=== PATIENT | male | born 1955 | race Hispanic/Latino ===

== ENCOUNTER 2017-12-28 07:15 | Day surgery (SDC) | payer BC ==
[2017-12-22 08:31] VITALS: BMI 27.2
--- NOTE | 2017-12-26 03:53 | HP ---
REASON FOR ADMISSION: Left heart cath, possible angioplasty, abnormal stress test. BRIEF CLINICAL HISTORY: This is a 62-year-old male with a past medical history significant for hypothyroidism, hypertension, hyperlipidemia, complaining of dyspnea on exertion, chest pain, jaw pain, neck pain on exertion especially more so when he woke up in the morning. Patient underwent a stress test and echo. A stress test showed apical ischemia with [address] depression in II, III, aVF. Patient is scheduled for elective cardiac cath, possible angioplasty. PAST HISTORY: Significant for hypertension, hyperlipidemia, hypothyroidism. SOCIAL HISTORY: Denies any smoking. Denies any history of alcohol abuse. CURRENT MEDICATIONS: Patient is taking simvastatin 20 mg daily, metoprolol succinate 100 mg daily, lisinopril 10 mg daily, levothyroxine 25 mcg daily, aspirin 81 mg daily. ALLERGIES: NO KNOWN DRUG ALLERGY. RECENT CARDIAC WORKUP: As follows: Patient had echocardiography on 12/05/2017, that showed ejection fraction 55%, mild MR, trace tricuspid regurgitation, RV systolic pressure 24. Patient underwent a stress test, stress thallium that walked on the treadmill for 9 minutes 13 seconds and the peak of exercise shows [address] depression in II, III, aVF, V5, V6. No jaw pain at the time, but nuclear scan suspicious for ischemia apical, ejection fraction 62%. REVIEW OF SYSTEMS: As per HPI. PHYSICAL EXAMINATION: GENERAL: As follows: Height of the patient 5 feet 6 inches, weight of the patient 169 pounds, body mass index 28 kg/sq m. VITAL SIGNS: Temperature afebrile, heart rate 80, blood pressure 130/80. HEENT: PERRLA. Extraocular muscles intact. NECK: Supple. No carotid bruit or thyromegaly. CHEST: Clear to auscultation. HEART: S1 and S2 regular. ABDOMEN: Soft. EXTREMITIES: Clubbing and cyanosis, negative. LABORATORY DATA: Blood workup pending. IMPRESSION: A 62-year-old male with hypothyroidism, hypertension, and hyperlipidemia, complaining of jaw pain when waking up in the morning, abnormal stress test, apical ischemia, ejection fraction preserved, mild mitral regurgitation, [id number]-mj-[id number] tricuspid regurgitation. RECOMMENDATION: Cardiac cath. Further recommendations after the cardiac catheterization. We will follow the blood workup when it is available and if okay, we will proceed for cardiac catheterization. Discussed with the patient. Patient agreed. We will proceed for cardiac cath. Further recommendation after cardiac catheterization. Thank you, Dr. Johnson, for providing us the opportunity in taking care of the patient, Thierry Coleman. Ricardo Brothers MD
[2017-12-28 08:00] LABS: BASO # 0.07 K/mm3 (0.0-2.0); BASO % 0.9 % (0.0-3.0); EOS # 0.2 (0.0-0.7); EOS % 2.1 % (1.5-5.0); GRAN # 4.9 (1.4-6.5); GRAN % 61.5 % (50.0-68.0); HEMOGLOBIN 15.6 g/dL (14.0-18.0); LYMPH # 2.3 (1.2-3.4); LYMPH % 28.9 % (22.0-35.0); MEAN CELL VOLUME 89.7 fl (80.0-105.0); MEAN CORPUSCULAR HEMOGLOBIN 30.2 pg (25.0-35.0); MEAN CORPUSCULAR HGB CONC 33.6 g/dl (31.0-37.0); MEAN PLATELET VOLUME 10.8 fl (7.0-11.0); MONO # 0.5 (0.1-0.6); MONO % 6.6 % (1.0-6.0); RBC 5.17 10^6/uL (3.5-6.1); RED CELL DISTRIBUTION WIDTH 13.1 % (11.5-14.5)
[2017-12-28 08:06] LABS: INR 1.03; PARTIAL THROMBOPLASTIN TIME 29.1 Seconds (25.1-36.5); PROTHROMBIN TIME 11.8 SECONDS (9.4-12.5)
[2017-12-28 08:17] LABS: BLOOD UREA NITROGEN 18 mg/dL (7-21); CALCIUM 9.5 mg/dL (8.4-10.5); GFR NON-AFRICAN AMERICAN > 60; HDL CHOLESTEROL 37 mg/dL (29-60)
[2017-12-28 08:28] LABS: LDL CHOLESTEROL 89 mg/dL (0-129)
[2017-12-28] MEDS ORDERED: Verapamil 2 ML ONE (09:42)
[2017-12-28] MEDS ORDERED: Lidocaine 2% PF (10 ml) Amp ONE (09:42)
[2017-12-28] MEDS ORDERED: Nitroglycerin 50mg in D5W 50 MG/250 ML BOTTLE IV ONE (09:42)
--- NOTE | 2017-12-28 09:51 | CARD ---
APPROVED REPORT Date of service: 12/28/2017 EKG Measurement Heart [id number] <Conclusion> Normal sinus rhythm Normal ECG
[2017-12-28] MEDS ORDERED: Midazolam 2 MG/2 ML VIAL ONE (10:36)
[2017-12-28] MEDS ORDERED: Iohexol 350mgl/ml 50 ML ONE (10:55)
[2017-12-28] MEDS ORDERED: Iohexol 350 MG/100 ML VIAL ONE (10:55)
[2017-12-28] MEDS ORDERED: Eptifibatide 20 mg/10mL Inj IVP ONE (10:55)
[2017-12-28] MEDS ORDERED: Phenylephrine 10 mg/ml Inj ONE (11:03)
[2017-12-28] MEDS ORDERED: Sodium Chloride 0.9% 1,000 ML IV SCH (11:45)
--- NOTE | 2017-12-28 12:12 | CPOSTOP ---
DATE: 12/28/2017 CARDIOVASCULAR LAB POST PROCEDURE NOTE DICTATING PHYSICIAN: Ricardo Brothers MD BED MACHINE OPERATOR: Willy prepress technician. TYPE OF ANESTHESIA: Moderate conscious sedation. Total 2 mg of Versed, 100 of fentanyl. PRE-PROCEDURE DIAGNOSES: Unstable angina, abnormal stress test, apical defect, suspicious ischemia. PROCEDURE PERFORMED: 1. Left heart catheterization. 2. Stenting of mid right coronary artery with drug-eluting stent. FINDINGS: Mid RCA 80-90% stenosis, moderate disease in the LAD, preserved LV function. FINAL DIAGNOSIS: Single-vessel critical disease. POST PROCEDURE CONDITION: Post procedure, the patient's condition is stable. VASCULAR ACCESS SITE: Left radial. CLOSURE DEVICE: TR Band. TOTAL RADIATION DOSE: 8071.3 milligray unit. TOTAL FLUORO TIME: 6.9 minutes. Ricardo Brothers MD
--- NOTE | 2017-12-28 12:53 | CARD ---
APPROVED REPORT Date of service: 12/28/2017 EKG Measurement Heart [id number] <Conclusion> Sinus bradycardia Minimal voltage criteria for LVH, may be normal variant
[2017-12-28 15:42] LABS: BASO # 0.03 K/mm3 (0.0-2.0); BASO % 0.4 % (0.0-3.0); EOS # 0.2 (0.0-0.7); EOS % 1.8 % (1.5-5.0); GRAN # 5.11 (1.4-6.5); HEMOGLOBIN 14.8 g/dL (14.0-18.0); LYMPH # 2.2 (1.2-3.4); LYMPH % 26.8 % (22.0-35.0); MEAN CELL VOLUME 89.4 fl (80.0-105.0); MEAN CORPUSCULAR HEMOGLOBIN 30.3 pg (25.0-35.0); MEAN CORPUSCULAR HGB CONC 33.9 g/dl (31.0-37.0); MEAN PLATELET VOLUME 10.6 fl (7.0-11.0); MONO # 0.7 (0.1-0.6); RBC 4.89 10^6/uL (3.5-6.1); RED CELL DISTRIBUTION WIDTH 13.2 % (11.5-14.5); WHITE BLOOD COUNT 8.1 10^3/ul (4.5-11.0)
[2017-12-28 15:55] LABS: BLOOD UREA NITROGEN 15 mg/dL (7-21); CALCIUM 9.1 mg/dL (8.4-10.5); GFR NON-AFRICAN AMERICAN > 60
[2017-12-28] MEDS ORDERED: Bacitracin 500 Units/gm Oint Foilpak UD ONE (15:56)
[2017-12-28 17:48] VITALS: BP 150/73; PULSE 58; RESP 19; TEMP 97.7
[2017-12-28 17:57] VITALS: O2SAT 97
--- NOTE | 2017-12-28 18:28 | CARD ---
APPROVED REPORT Date of service: 12/28/2017 Procedure(s) performed: Left Heart Catheterization PTCA with Stenting of Mid RCA with Rioc HISTORY The patient is a 62 year-old male with a history of : most recent EF: 62%. (EF Method: RADIONUCLIDE), hypertension , dyslipidemia , Chest pain, Jaw pain and neck pain on exertion and abnormal stress test Apical ischemia. INDICATION The indication(s) include : positive stress test. CASE TECHNIQUE The patient was brought electively to the Cardiac Catheterization Laboratory in a fasting state and was prepped and draped in a sterile manner. The left wrist was infiltrated with 2% Lidocaine subcutaneous anesthesia. A 6FR [employer] KIT sheath was inserted into the left radial artery without difficulty. Coronary angiography was performed using coronary diagnostic catheters. The left coronary system was accessed and visualized with a Diagnostic ,5F JR 4 CATH DXT 100 CM catheter. The right coronary system was accessed and visualized with a Diagnostic ,6 Fr AL 1 catheter. The left ventricle was accessed and visualized with a 5 Fr Pigtail 145 (Angled) catheter. Left ventricular/Aortic Valve gradient assessed on pullback. Left ventriculogram was performed in PAULSON projection. The patient tolerated the procedure well and there were no complications associated with the procedure. Vessel Analysis The patient's coronary anatomy is co-dominant. The left main coronary artery is a medium size vessel with intimal irregularities and without significant stenosis. The left main bifurcates to the left anterior descending and circumflex. The left anterior descending artery is a medium size vessel with diffuse calcification noted throughout this vessel and without significant stenosis. There is a 50-60% stenosis in the mid segment. The first diagonal branch is a medium size vessel with diffuse calcification noted throughout this vessel and without significant stenosis. There is a 50% stenosis in the ostial segment. The second diagonal branch is a medium size vessel with diffuse calcification noted throughout this vessel and without significant stenosis. There is a 50% stenosis in the ostial segment. The circumflex artery is a medium size vessel with diffuse calcification noted throughout this vessel and without significant stenosis. The first obtuse marginal branch is a small size vessel with diffuse calcification noted throughout this vessel and without significant stenosis. The second obtuse marginal branch is a medium size vessel with intimal irregularities and without significant stenosis. The left posterior descending artery is a medium size vessel with diffuse calcification noted throughout this vessel and without significant stenosis. The right coronary artery is a large size vessel with diffuse calcification noted throughout this vessel and with significant stenosis. There is a 80% stenosis in the mid segment. The right posterior descending artery is a medium size vessel with diffuse calcification noted throughout this vessel and without significant stenosis. The right posterolateral branch is a medium size vessel with diffuse calcification noted throughout this vessel and without significant stenosis. Left Ventricle The left ventricle is normal in size with normal contractility. There was no cardiomyopathy. The left ventricular ejection fraction is estimated to be 55-60%. The left ventricular end diastolic pressure is 12-14 mmHg. There was no gradient across the aortic valve upon pullback. PCI Technique Lesion Anticoagulation was achieved with Heparin and integrellinn Bollus. Percutaneous coronary intervention was performed on the mid right coronary artery. The lesion stenosis prior to intervention was 80% with ALIN 2 flow. A Luge 182 Interventional Guidewire was used to cross the lesion. BALLOON DILATION A Balloon catheter 3.5 x 10 mm Sprinter RX was inserted and inflated up to 12.00atm for 10seconds. STENT DEPLOYMENT A drug-eluting stent STENT RESOLUTE TAMEKA 4.0 X 15 was inserted and inflated up to 12.00atm for 10seconds. POST STENT DEPLOYMENT BALLOON DILATION A Balloon catheter 4.0 x 12 mm Sprinter NC was inserted and inflated up to 14.00atm for 15seconds. Final angiography reveals 0 % stenosis with ALIN 3 flow. Conclusion Single Vessel Critical Diz. involving mid RCA 80%. Moderate Diz in Mid LAD and ostial D1 and D2 Preserved LV Fx. EF-55-60%, EDp-12-14 mmof hg Successful PTCa with R[place] of Mid RCA Recommendations Daily ASA with Plavix for at least one year Aggressive Medical TherapyCardiac Risk Reduction Program CC; Dr. Johnson
[2017-12-29] MEDS ORDERED: Levothyroxine 75 MCG TAB PO SCH (10:00)
[2017-12-29] MEDS ORDERED: Metoprolol Succinate 50 mg XL Tab PO SCH (10:00)
== END 2017-12-28 21:53 | disposition home or self-care (01) ==
LOC: CATH 07:15 → 2RSO 11:40 → CATH 21:53
PROVIDERS: ATTEND Internal Medicine Cardiovascular Disease
DX: I25.110 Atherosclerotic heart disease of native coronary artery with unstable angina pectoris (principal); I10 Essential (primary) hypertension; E78.5 Hyperlipidemia, unspecified; E03.9 Hypothyroidism, unspecified; R68.84 Jaw pain; M54.2 Cervicalgia
CPT/HCPCS: 36415; 80048; 80061; 85025; 85175; 85610; 85730; 86850; 86900; 93005; 93458; 99152; 99153; C1725 ×2; C1769 ×2; C1874; C1887; C9600; J1327; J1644 ×2; J2250; J3010; J7030; J7040; Q9967 ×2